=== PATIENT | female | born 2000 | race Caucasian/White ===

== ENCOUNTER 2023-10-02 05:15 | Day surgery (SDC) | payer OTHER ==
[2023-10-02] MEDS ORDERED: CEFAZOLIN SODIUM 1,000 MG VIAL ONE ×2 (07:43→14:12)
[2023-10-02] MEDS ORDERED: CHLORHEXIDINE GLUCONATE 120 ML BOTTLE TOP ONE (10:00)
[2023-10-02] MEDS ORDERED: SUGAMMADEX SODIUM 200 MG/2 ML VIAL IV ONE (12:45)
[2023-10-02] MEDS ORDERED: NEOMYCIN/BACITRACIN/POLYMYXINB 14 G TUBE TOP ONE (13:30)
[2023-10-02] MEDS ORDERED: ONDANSETRON HCL 2 MG/ML VIAL ONE (15:21)
== END 2023-10-02 17:55 | disposition home or self-care (01) ==
LOC: CIR.AMB 05:15 → O/R 05:15 → CIR.AMB 17:55
PROVIDERS: ATTEND Plastic Surgery Surgery of the Hand
DX: N62 Hypertrophy of breast (principal); N64.89 Other specified disorders of breast